=== PATIENT | male | born 1995 | race Caucasian/White ===

== ENCOUNTER 2022-07-20 20:21 | Emergency (ER) | payer OTHER ==
[2022-07-20 20:55] VITALS: BP 153/87; PULSE 95; RESP 20; TEMP 98.2; BMI 26.5
[2022-07-20] MEDS ORDERED: predniSONE 20 MG TABLET (UD) PO ONE (21:47)
[2022-07-20] MEDS ORDERED: ALBUTEROL SO4 2.5/IPRATROPIUM 0.5 INH SOL 3 ML VIAL.NEB. NEB ONE (21:50)
[2022-07-20] MEDS ORDERED: predniSONE 20 MG TABLET (UD) ONE (21:50)
[2022-07-20] MEDS: ALBUTEROL SO4 2.5/IPRATROPIUM 0.5 INH SOL 3 ML VIAL.NEB. NEB SCH ×2 (22:19→22:20)
== END 2022-07-20 23:59 | disposition home or self-care (01) ==
LOC: JER 20:21
PROC: 3E0F7GC Introduction of Other Therapeutic Substance into Respiratory Tract, Via Natural or Artificial Opening (ICD-10-PCS; principal; 2022-07-20)
DX: J06.9 Acute upper respiratory infection, unspecified (principal); J45.21 Mild intermittent asthma with (acute) exacerbation
CPT/HCPCS: 0241U-QW; 99283-25